=== PATIENT | female | born 1985 | race Caucasian/White ===

== ENCOUNTER 2017-08-16 11:17 | Outpatient (CLI) | payer OTHER ==
[~2017-08-16] VITALS: Ht 152.4 cm; Wt 180.0 kg
[~2017-08-16 11:17] MED LIST: AMOXICILLIN500 M1 PO; DEPAKOTE500 MG PO; DOXYCYCLINE MO100 M1 PO; Elavil PO; FLAGYL500 MG PO; MAXALT10 MG PO; MAXALT5 MG PO; MONONESSA1 EACH PO; MOTRIN800 MG PO; OMEPRAZOLE20 M1 PO; OMEPRAZOLE20 MG PO; PERCOCET 5/31 TABLET PO; PRAVACHOL40 MG PO; PRENATAL TABLE1 EAC3 PO; RELPAX40 MG PO
[2017-08-16 12:10] LABS: ADD MIUA? NO; BILIRUBIN NEGATIVE; BLOOD NEGATIVE; COLOR YELLOW ((YELLOW)); GLUCOSE (STRIP) NEGATIVE; KETONES NEGATIVE; LEUKOCYTES NEGATIVE; NITRITE NEGATIVE; PROTEIN (STRIP) NEGATIVE; SPECIFIC GRAVITY 1.009 (1.000-1.030); UCUL ADDED? NO; UROBILINOGEN 0.2 MG/DL (0.2-1.0)
[2017-08-16] MEDS ORDERED: PRENATAL TABLE1 EAC3 PO (14:04)
[2017-08-16] MEDS ORDERED: ZANTAC150 MG PO (14:05)
[2017-08-16 14:14] VITALS: BP 131/74
== END 2017-08-16 16:20 | disposition home or self-care (01) ==
LOC: EME 11:17 → LDRP-OP 11:17 → EME 11:17 → EDSTATUS 14:03 → 2WEST 14:04
PROVIDERS: Emergency Medicine
DX: O36.8120 Decreased fetal movements, second trimester, not applicable or unspecified (principal); Z3A.25 25 weeks gestation of pregnancy; O09.292 Supervision of pregnancy with other poor reproductive or obstetric history, second trimester
CPT/HCPCS: 59025; 81003; 99281; 99284; G0378; J7030

== ENCOUNTER 2017-10-23 16:41 | Outpatient (CLI) | payer OTHER ==
[~2017-10-23] VITALS: Ht 154.9 cm; Wt 92.5 kg
[2017-10-23] VITALS (10 sets, daily range): BP systolic 116–141; BP diastolic 58–75
[~2017-10-23 16:41] MED LIST changes: +ZANTAC150 MG PO
[2017-10-23] MEDS ORDERED: UNISOM50 MG PO (17:17)
[2017-10-23] MEDS ORDERED: FIORICET,ESG1 TABLET PO (17:18)
[2017-10-23] MEDS ORDERED: PRENATAL TABLE1 EAC3 PO (17:19)
[2017-10-23] MEDS ORDERED: ZANTAC150 MG PO (17:19)
[2017-10-23] MEDS ORDERED: TYLENOL EXTRA500 MG PO (17:20)
[2017-10-23 17:23] LABS: BASOPHIL COUNT 0.1 K/uL (0-0.1); EOSINOPHIL (%) 1.5 % (0-5); EOSINOPHIL COUNT 0.2 K/uL (0-0.3); HEMATOCRIT 36.4 % (36.0-46.0); IMMATURE GRANULOCYTE (%) 1.5 % (0.0-0.7); IMMATURE GRANULOCYTE COUNT 0.2 K/uL; INSTRUMENT ABS NEUTROPHIL CT 11.1 K/uL; LYMPHOCYTE COUNT 2.2 K/uL (1.0-2.8); MCH 32.1 PG (29.0-34.0); MCHC 35.4 G/DL (30.0-36.0); MCV 90.5 FL (83-99); MONOCYTE (%) 8.6 % (3-12); MONOCYTE COUNT 1.3 K/uL (0-0.8); NEUTROPHIL (%) 73.4 % (45-76); NEUTROPHIL COUNT 11.1 K/uL (1.8-6.4); PLATELET COUNT 231 K/uL (156-360); RBC DIS.WIDTH-CV 12.4 % (11.8-14.6); RBC DIS.WIDTH-SD 40.6 % (39-53); RED BLOOD COUNT 4.02 M/uL (3.80-5.20); WHITE BLOOD COUNT 15.2 K/uL (4.1-10.2)
[2017-10-23 17:35] LABS: ANION GAP 10 MEQ/L (2-14); CHLORIDE 103 MEQ/L (99-109); POTASSIUM 3.4 MEQ/L (3.7-5.4); SAMPLE HEMOLYSIS CHECK 0; SAMPLE ICTERIC CHECK 0; SAMPLE LIPEMIA CHECK 0; SODIUM 134 MEQ/L (136-147); TOTAL BILIRUBIN 0.2 MG/DL (0.0-1.0)
[2017-10-23 17:41] LABS: ALKALINE PHOSPHATASE 99 IU/L (3-129); GFR ESTIMATE (CALCULATED) > 59 mL/min/; GLUCOSE 99 mg/dL (70-99); LACTATE DEHYDROGENASE 147 IU/L (20-246); UREA NITROGEN (BUN) 7 mg/dL (9-23); URIC ACID 3.8 mg/dL (3.1-9.2)
[2017-10-23 18:12] LABS: UR CREATININE CONCENTRATION 79.3 MG/DL
[2017-10-23] MEDS ORDERED: BUTALB-APAP-CA1 EACH PO (20:28)
== END 2017-10-23 22:00 | disposition home or self-care (01) ==
LOC: LDRP-OP 16:41 → 2WEST 16:43 → LDRP-OP 12-24 12:42
PROVIDERS: Advanced Practice Midwife
DX: O99.89 Other specified diseases and conditions complicating pregnancy, childbirth and the puerperium (principal); R51 Headache; Z3A.35 35 weeks gestation of pregnancy
CPT/HCPCS: 59025; 80053; 82570; 83615; 84156; 84550; 85025; G0378; J7120

== ENCOUNTER 2017-11-28 08:02 | Outpatient (CLI) | payer OTHER ==
[~2017-11-28 08:02] MED LIST changes: +BUTALB-APAP-CA1 EACH PO; +FIORICET,ESG1 TABLET PO; +TYLENOL EXTRA500 MG PO; +UNISOM50 MG PO
[2017-11-28 08:42] VITALS: BP 129/74
== END 2017-11-28 11:17 | disposition home or self-care (01) ==
LOC: LDRP-OP 08:02 → 2WEST 08:03 → LDRP-OP 15:56
DX: O48.0 Post-term pregnancy (principal); Z87.891 Personal history of nicotine dependence; Z83.3 Family history of diabetes mellitus; Z82.3 Family history of stroke; Z3A.41 41 weeks gestation of pregnancy
CPT/HCPCS: 59025; 76818; G0378

== ENCOUNTER 2017-11-30 08:08 | Inpatient (IN) | payer OTHER ==
[~2017-11-30] VITALS: Ht 154.9 cm; Wt 101.0 kg
[2017-11-30] VITALS (45 sets, daily range): BP systolic 123–188; BP diastolic 60–118
[2017-11-30 09:27] LABS: BASOPHIL (%) 0.4 % (0-1); BASOPHIL COUNT 0.1 K/uL (0-0.1); EOSINOPHIL (%) 1.1 % (0-5); EOSINOPHIL COUNT 0.2 K/uL (0-0.3); HEMATOCRIT 38.4 % (36.0-46.0); HEMOGLOBIN 13.1 G/DL (11.9-15.5); IMMATURE GRANULOCYTE (%) 1.2 % (0.0-0.7); LYMPHOCYTE (%) 16.1 % (15-42); LYMPHOCYTE COUNT 2.3 K/uL (1.0-2.8); MCHC 34.1 G/DL (30.0-36.0); MONOCYTE COUNT 1.1 K/uL (0-0.8); NEUTROPHIL (%) 73.2 % (45-76); NEUTROPHIL COUNT 10.4 K/uL (1.8-6.4); PLATELET COUNT 202 K/uL (156-360); RBC DIS.WIDTH-CV 12.8 % (11.8-14.6); RBC DIS.WIDTH-SD 42.2 % (39-53); RED BLOOD COUNT 4.22 M/uL (3.80-5.20); WHITE BLOOD COUNT 14.3 K/uL (4.1-10.2)
[2017-11-30 09:45] LABS: ALBUMIN 3.3 G/DL (3.2-4.8); ALKALINE PHOSPHATASE 164 IU/L (3-129); ALT (GPT) 14 IU/L (3-49); AST (GOT) 16 IU/L (2-34); CHLORIDE 103 MEQ/L (99-109); CREATININE 0.7 MG/DL (0.6-1.3); GFR ESTIMATE (CALCULATED) > 59 mL/min/; GLUCOSE 92 mg/dL (70-99); LACTATE DEHYDROGENASE 136 IU/L (20-246); POTASSIUM 4.2 MEQ/L (3.7-5.4); SODIUM 135 MEQ/L (136-147); TOTAL BILIRUBIN 0.3 MG/DL (0.0-1.0); TOTAL PROTEIN 6.2 G/DL (6.4-8.3); UREA NITROGEN (BUN) 9 mg/dL (9-23); URIC ACID 5.1 mg/dL (3.1-9.2)
[2017-11-30 11:28] LABS: UR CREATININE CONCENTRATION 36.5 MG/DL
[2017-12-01 02:10] VITALS: BP 126/66
[2017-12-01 03:30] VITALS: BP 112/52
[2017-12-01 05:30] VITALS: BP 117/62
[2017-12-01 07:52] VITALS: BP 133/77
[2017-12-01 11:53] LABS: BASOPHIL (%) 0.2 % (0-1); EOSINOPHIL (%) 0.3 % (0-5); EOSINOPHIL COUNT 0.1 K/uL (0-0.3); HEMATOCRIT 36.6 % (36.0-46.0); HEMOGLOBIN 12.6 G/DL (11.9-15.5); LYMPHOCYTE COUNT 2.4 K/uL (1.0-2.8); MCH 31.5 PG (29.0-34.0); MCHC 34.4 G/DL (30.0-36.0); MCV 91.5 FL (83-99); MONOCYTE COUNT 1.5 K/uL (0-0.8); NEUTROPHIL (%) 77.5 % (45-76); PLATELET COUNT 201 K/uL (156-360); RBC DIS.WIDTH-SD 43.5 % (39-53); WHITE BLOOD COUNT 18.1 K/uL (4.1-10.2)
[2017-12-01 14:25] VITALS: BP 132/84
[2017-12-02 06:53] VITALS: BP 146/82
[2017-12-02 10:44] VITALS: BP 139/71
[2017-12-02 14:44] VITALS: BP 144/79
[2017-12-02 20:38] LABS: BASOPHIL (%) 0.3 % (0-1); BASOPHIL COUNT 0.1 K/uL (0-0.1); EOSINOPHIL (%) 1.2 % (0-5); EOSINOPHIL COUNT 0.2 K/uL (0-0.3); HEMATOCRIT 31.7 % (36.0-46.0); HEMOGLOBIN 11.2 G/DL (11.9-15.5); IMMATURE GRANULOCYTE (%) 1.1 % (0.0-0.7); LYMPHOCYTE (%) 14.5 % (15-42); LYMPHOCYTE COUNT 2.2 K/uL (1.0-2.8); MCH 32.1 PG (29.0-34.0); MCHC 35.3 G/DL (30.0-36.0); MCV 90.8 FL (83-99); MONOCYTE (%) 7.1 % (3-12); MONOCYTE COUNT 1.1 K/uL (0-0.8); NEUTROPHIL (%) 75.8 % (45-76); NEUTROPHIL COUNT 11.3 K/uL (1.8-6.4); PLATELET COUNT 187 K/uL (156-360); RBC DIS.WIDTH-CV 12.9 % (11.8-14.6); RBC DIS.WIDTH-SD 42.5 % (39-53); RED BLOOD COUNT 3.49 M/uL (3.80-5.20); WHITE BLOOD COUNT 14.9 K/uL (4.1-10.2)
[2017-12-02 20:49] LABS: AMYLASE 33 IU/L (1-118); CHLORIDE 106 mEq/L (99-109); POTASSIUM 3.8 mEq/L (3.7-5.4); SODIUM 137 mEq/L (136-147)
[2017-12-02 20:51] LABS: GLUCOSE 112 mg/dL (70-99); TOTAL PROTEIN 5.8 g/dL (6.4-8.3)
[2017-12-02 20:53] LABS: TOTAL BILIRUBIN 0.2 mg/dL (0.0-1.0)
[2017-12-02 20:54] LABS: ALKALINE PHOSPHATASE 116 IU/L (3-129)
[2017-12-02 20:55] LABS: CREATININE 0.7 mg/dL (0.6-1.3); GFR ESTIMATE (CALCULATED) > 59 mL/min/
[2017-12-02 20:56] LABS: AST (GOT) 22 IU/L (2-34); UREA NITROGEN (BUN) 12 mg/dL (9-23)
[2017-12-02 20:58] LABS: ALT (GPT) 15 IU/L (3-49); LIPASE 21 U/L (1.0-51.0)
[2017-12-03 06:35] VITALS: BP 134/79
[2017-12-03] MEDS ORDERED: IBUPROFEN800 MG PO (08:51)
[2017-12-03] MEDS ORDERED: ENDOCET 5-3251 EACH PO (08:51)
[2017-12-03 14:05] VITALS: BP 138/82
== END 2017-12-03 17:30 | disposition home or self-care (01) | DRG 766 ==
LOC: LDRP-OP 08:08 → 2WEST 08:09 → LDRP-OP 12:16 → 2WEST 23:50 → LDRP-OP 12-25 02:51
PROVIDERS: Obstetrics & Gynecology; Obstetrics & Gynecology Obstetrics
PROC: 3E0R3BZ Introduction of Anesthetic Agent into Spinal Canal, Percutaneous Approach (ICD-10-PCS; principal; 2017-11-30)
PROC: 10D00Z1 Extraction of Products of Conception, Low, Open Approach (ICD-10-PCS; principal; 2017-11-30)
PROC: 3E0P7VZ Introduction of Hormone into Female Reproductive, Via Natural or Artificial Opening (ICD-10-PCS; principal; 2017-11-30)
PROC: 3E033VJ Introduction of Other Hormone into Peripheral Vein, Percutaneous Approach (ICD-10-PCS; principal; 2017-11-30)
PROC: 00HU33Z Insertion of Infusion Device into Spinal Canal, Percutaneous Approach (ICD-10-PCS; principal; 2017-11-30)
DX: O13.4 Gestational [pregnancy-induced] hypertension without significant proteinuria, complicating childbirth (principal); O99.214 Obesity complicating childbirth; O76 Abnormality in fetal heart rate and rhythm complicating labor and delivery; O34.211 Maternal care for low transverse scar from previous cesarean delivery; O33.9 Maternal care for disproportion, unspecified; E66.9 Obesity, unspecified; Z68.31 Body mass index [BMI] 31.0-31.9, adult; F31.9 Bipolar disorder, unspecified; O99.344 Other mental disorders complicating childbirth; O62.1 Secondary uterine inertia; O61.0 Failed medical induction of labor; O48.0 Post-term pregnancy; F40.01 Agoraphobia with panic disorder; Z3A.41 41 weeks gestation of pregnancy; Z87.891 Personal history of nicotine dependence; K21.9 Gastro-esophageal reflux disease without esophagitis; O99.62 Diseases of the digestive system complicating childbirth; Z37.0 Single live birth
CPT/HCPCS: 59025; 76818; 80053; 82150; 82570; 83615; 83690; 84156; 84550; 85025; 86850; 86900; 86901; 87086; C1755; G0378; J0595; J0690; J1200; J2175; J2270; J2274; J2405; J2590; J2795; J3010; J7120